=== PATIENT | male | born 1975 | race Caucasian/White ===

== ENCOUNTER 2023-09-19 09:10 | Emergency (ER) | payer OTHER ==
[2023-09-19 10:01] VITALS: BP 149/84; O2SAT 96
[2023-09-19] MEDS ORDERED: lidocaine 1% 20 ML MDV SUBQ ONE (11:38)
--- NOTE | 2023-09-19 11:41 | ED Physician Documentation ---
History of Present Illness - Stated complaint Stated Complaint: LT FOOT LAC - Chief complaint Chief Complaint: Laceration - Additonal information Additional information: This is a very nice 48-year-old male presents with an accidental puncture wound to the bottom top of the left foot. The patient was cleaning the kitchen, and accidentally dropped a knife from chest height and it fell onto the dorsum of the left foot. States he would have come in but it bled fairly briskly for quite a while and they could not get it to stop. He is interested in suturing rather than steristrips PD PAST MEDICAL HISTORY - Past Medical History Past Medical History: No - Past Surgical History HEENT: Tonsil/Adenoidectomy - Allergies Allergies/Adverse Reactions: Allergies Allergy/AdvReac Type Severity Reaction Status Date / Time Penicillins Allergy Unknown Verified 09/19/23 09:36 - Social History Does the pt smoke?: No Smoking Status: Never smoker PD ED PE NORMAL - Vitals Vital signs reviewed: Yes - General General: Alert and oriented X 3, No acute distress, Well developed/nourished - Derm Derm: Normal color, Warm and dry, Other (1 cm laceration mid dorsal surface of the left foot. Not actively bleeding.) - Extremities Extremities: No deformity, No tenderness to palpate, Normal ROM s pain, No edema, No calf tenderness / cord Results - Vitals Vitals: Vital Signs - 24 hr 09/19/23 09:31 Temperature 36.4 C L Heart Rate 94 Respiratory 18 Rate Blood Pressure 149/84 H O2 Saturation 96 Oxygen O2 Source Room air Procedures - Laceration (location) Foot left Dorsal Length in cm: 1 Wound type: Linear Neurovascular status: Sensory intact, Motor intact, Vascular intact Anesthesia: Lidocaine 1% Wound preparation: Irrigated copiously NS Skin layer closure: Nylon, Interrupted, Size #-0 - enter number (4), Sutures - enter # (3) Other: Patient tolerated well, Tetanus UTD PD Medical Decision Making - ED course Complexity details: d/w patient ED course: 48-year-old male presented with a small laceration on the dorsal surface of the left foot after an accidental puncture wound. I discussed options including glue and Steri-Strips, pressure dressing, or sutures and patient did prefer to have it sutured therefore I anesthetized locally, cleaned thoroughly with normal saline and placed 3 simple interrupted sutures. Patient given home wound care instructions and return precautions. Departure - Departure Disposition: 01 Home, Self Care Clinical Impression: Laceration of foot Qualifiers: Encounter type: initial encounter Laterality: left Qualified Code(s): S91.312A - Laceration without foreign body, left foot, initial encounter Condition: Good Instructions: ED Laceration All Comments: Thank you for visiting [facility] ER. I placed 3 stitches in the left foot. These are dissolvable or can be removed in a week. Try not to soak (shower is ok but pat dry). If there are any signs of infection, return to the ER. Forms: PCP List
== END 2023-09-19 12:13 | disposition home or self-care (01) ==
LOC: ED 09:10
DX: S91.312A Laceration without foreign body, left foot, initial encounter (principal); W26.0XXA Contact with knife, initial encounter; Y93.E9 Activity, other interior property and clothing maintenance
CPT/HCPCS: 12001; 99282